=== PATIENT | female | born 1975 ===

== ENCOUNTER 2018-05-03 07:20 | Day surgery (SDC) | payer OTHER ==
[2018-05-03] MEDS ORDERED: NABUMETONE750 MG PO (11:21)
[2018-05-03] MEDS ORDERED: DOXYCYCLINE HY100 MG PO (11:21)
== END 2018-05-03 12:55 | disposition home or self-care (01) ==
LOC: CIR.AMB 07:20
DX: O02.0 Blighted ovum and nonhydatidiform mole (principal)